=== PATIENT | female | born 1935 | race Caucasian/White ===

== ENCOUNTER → 2016-12-18 | Outpatient (CLI) | payer MEDICARE, BC ==
--- NOTE | 2016-12-19 09:28 | RAD ---
DATE: 12/18/2016 EXAM: MAMMO ESSENCE SCREENING BILATERAL HISTORY: Asymptomatic screening mammogram. History of benign right breast biopsy. COMPARISON: 12/09/2015, 11/28/2011, 05/15/2011 This study was interpreted with the benefit of Computerized Aided Detection (CAD). The breast parenchyma is primarily fatty replaced. Breast parenchyma level density A. FINDINGS: Right breast: The right MLO view is inadequate as the pectoralis muscle is not included to the level of the posterior nipple line. Additional imaging is recommended. No suspicious microcalcifications, masses or areas or architectural distortion identified on the cc view. Left breast: No suspicious mammographic calcifications, masses or areas of architectural distortion identified. IMPRESSION: 1. Incomplete right mammogram. Additional views to include repeat right MLO view. 2. Normal left mammogram. BI-RADS CATEGORY: 0 INCOMPLETE: NEEDS ADDITIONAL IMAGING EVALUATION AND/OR PRIOR MAMMOGRAMS FOR COMPARISON. RECOMMENDED FOLLOW-UP: ADD ADDITIONAL IMAGING PQRS compliance statement: Mammography is a sensitive method for finding small breast cancers, but it does not detect them all and is not a substitute for careful clinical examination. A negative mammogram does not negate a clinically suspicious finding and should not result in delay in biopsying a clinically suspicious abnormality. "Our facility is accredited by the [employer] Mammography Program."
== END | disposition home or self-care (01) ==
LOC: MAMMO 11:14
PROVIDERS: ATTEND Internal Medicine
DX: Z12.31 Encounter for screening mammogram for malignant neoplasm of breast (principal)
CPT/HCPCS: 77063; G0202; 77067

== ENCOUNTER → 2016-12-29 | Outpatient (CLI) | payer MEDICARE, BC | END | disposition home or self-care (01) | LOC: MAMMO 13:54 | PROVIDERS: ATTEND Internal Medicine | DX: Z53.21 Procedure and treatment not carried out due to patient leaving prior to being seen by health care provider (principal) ==

== ENCOUNTER 2018-01-21 11:30 | Inpatient (IN) | payer MEDICARE, BC ==
[~2018-01-21] VITALS: Ht 165.1 cm; Wt 78.0 kg
[2018-01-21 12:19] LABS: BASO # 0.1 x10^3/uL (0.0-0.2); BASO % 1 % (0-3); EOS # 0.3 x10^3/uL (0.0-0.7); EOS % 7 % (0-3); HEMATOCRIT 42.5 % (36.0-47.0); HEMOGLOBIN 14.3 g/dL (12.0-15.5); LYMPH # 0.8 x10^3/uL (1.0-4.8); LYMPH % 17 % (24-48); MEAN CORPUSCULAR HEMOGLOBIN 28 pg (25-35); MEAN CORPUSCULAR HGB CONC 34 g/dL (31-37); MEAN CORPUSCULAR VOLUME 84 fL (79-100); MONO # 0.3 x10^3/uL (0.0-1.1); MONO % 6 % (0-9); NEUT # 3.5 x10^3uL (1.8-7.7); NEUT % 70 % (31-73); PLATELET COUNT 149 x10^3/uL (140-400); RED BLOOD COUNT 5.05 x10^6/uL (3.50-5.40); RED CELL DISTRIBUTION WIDTH 14.5 % (11.5-14.5)
--- NOTE | 2018-01-21 12:36 | RAD ---
CT scan of the head without contrast 01/21/2018 Clinical History: Sudden onset of dizziness since earlier today. Code stroke. Technique: Unenhanced, contiguous, 5 mm axial sections were obtained through the head. One or more of the following individualized dose reduction techniques were utilized for this study: 1. Automated exposure control. 2. Adjustment of the mA and/or kV according to patient size. 3. Use of iterative reconstruction technique. Findings: No previous studies are available for comparison. There is generalized parenchymal atrophy. Areas of decreased attenuation are seen within the periventricular and subcortical white matter of both cerebral hemispheres consistent with areas of small vessel ischemic disease. No acute parenchymal abnormality is seen. No extra-axial fluid collection is noted. No skull fracture is seen. Impression: No acute intracranial abnormality is seen. This result was called to Dr. Scott at 1229 hours. Electronically signed by: Doni Ross MD (01/21/2018 12:32 PM) [id number]
[2018-01-21 12:38] LABS: ALBUMIN 3.9 g/dL (3.4-5.0); ALBUMIN/GLOBULIN RATIO 1.2 (1.0-1.7); CALCIUM 9.3 mg/dL (8.5-10.1); CREATININE 0.8 mg/dL (0.6-1.0); GFR 68.7; POTASSIUM 3.7 mmol/L (3.5-5.1); TOTAL BILIRUBIN 0.6 mg/dL (0.2-1.0); TOTAL PROTEIN 7.2 g/dL (6.4-8.2)
[2018-01-21] MEDS ORDERED: ASPIRIN 81 MG TAB.CHEW PO ONE (12:45)
[2018-01-21] MEDS ORDERED: ONDANSETRON PF 4 MG/2 ML VIAL. IV ONE (12:45)
[2018-01-21] MEDS ORDERED: MECLIZINE 12.5 MG TABLET. PO PRN (12:45)
--- NOTE | 2018-01-21 13:44 | PHYS DOC ---
Past History Past Medical History: Arthritis, High Cholesterol, Heart Disease Past Surgical History: Knee Replacement, Other Alcohol Use: None Drug Use: None Adult General Chief Complaint Chief Complaint: DIZZY/LIGHT HEADED HPI HPI 82-year-old female patient brought in by EMS because of dizziness. Patient states she woke up at her usual time this morning without any problem and around 10 AM had sudden onset of dizziness with pain in his rectal area and nausea without blurred vision, focal neuro deficit, fever and chills, chest pain , shortness of breath, history of head injury or the same dizziness. Patient states that this is getting worse with moving her head or standing up and was not able to ambulate because of severe dizziness. Patient denies history of URI symptoms and change of her hearing. Review of Systems Review of Systems Constitutional: Denies fever or chills [] Eyes: Denies change in visual acuity, redness, or eye pain [] HENT: Denies nasal congestion or sore throat [] Respiratory: Denies cough or shortness of breath [] Cardiovascular: No additional information not addressed in HPI [] GI: Denies abdominal pain, nausea, vomiting, bloody stools or diarrhea [] : Denies dysuria or hematuria [] Musculoskeletal: Denies back pain or joint pain [] Integument: Denies rash or skin lesions [] Neurologic: Reports dizziness and headache, denies focal weakness or sensory changes [] Endocrine: Denies polyuria or polydipsia [] All other systems were reviewed and found to be within normal limits, except as documented in this note. Current Medications Current Medications Current Medications Medications (Trade) Dose Ordered Sig/Lelo Start Time Stop Time Status Last Admin Dose Admin Aspirin (Children'S Aspirin) 324 mg 1X ONCE 01/21/18 12:45 01/21/18 12:46 DC 01/21/18 12:45 324 MG Meclizine HCl (Antivert) 25 mg PRN Q6HRS PRN 01/21/18 12:45 01/21/18 12:45 25 MG Ondansetron HCl (Zofran) 4 mg 1X ONCE 01/21/18 12:45 01/21/18 12:46 DC 01/21/18 12:45 4 MG Allergies Allergies Allergies Coded Allergies Type Severity Reaction Last Updated Verified BISI Inhibitors Allergy Intermediate 01/21/18 Yes acetaminophen Allergy Intermediate 01/21/18 Yes amoxicillin Allergy Intermediate 01/21/18 Yes hydrocodone Allergy Intermediate 01/21/18 Yes Physical Exam Physical Exam Constitutional: Well developed, well nourished, moderate distress, non-toxic appearance, anxious, keeps her eyes closed. [] HENT: Normocephalic, atraumatic, bilateral external ears normal, oropharynx moist, no oral exudates, nose normal. [] Eyes: PERRLA, EOMI, conjunctiva normal, no discharge. [] Neck: Normal range of motion, no tenderness, supple, no stridor. [] Cardiovascular:Heart rate regular rhythm, no murmur [] Lungs & Thorax: Bilateral breath sounds clear to auscultation [] Abdomen: Bowel sounds normal, soft, no tenderness, no masses, no pulsatile masses. [] Skin: Warm, dry, no erythema, no rash. [] Back: No tenderness, no CVA tenderness. [] Extremities: No tenderness, no cyanosis, no clubbing, ROM intact, no edema. [] Neurologic: Alert and oriented X 3, normal motor function, normal sensory function, no focal deficits noted, NIHSS of 0. [] Psychologic: Affect anxious, judgement normal, mood normal. [] Current Patient Data Vital Signs Vital Signs Date Time Temp Pulse Resp B/P (MAP) Pulse Ox O2 Delivery O2 Flow Rate FiO2 01/21/18 11:49 80 16 96 Room Air Lab Results Laboratory Tests Test 01/21/18 11:58 01/21/18 12:20 White Blood Count 5.0 x10^3/uL (4.0-11.0) Red Blood Count 5.05 x10^6/uL (3.50-5.40) Hemoglobin 14.3 g/dL (12.0-15.5) Hematocrit 42.5 % (36.0-47.0) Mean Corpuscular Volume 84 fL (79-100) Mean Corpuscular Hemoglobin 28 pg (25-35) Mean Corpuscular Hemoglobin Concent 34 g/dL (31-37) Red Cell Distribution Width 14.5 % (11.5-14.5) Platelet Count 149 x10^3/uL (140-400) Neutrophils (%) (Auto) 70 % (31-73) Lymphocytes (%) (Auto) 17 % (24-48) L Monocytes (%) (Auto) 6 % (0-9) Eosinophils (%) (Auto) 7 % (0-3) H Basophils (%) (Auto) 1 % (0-3) Neutrophils # (Auto) 3.5 x10^3uL (1.8-7.7) Lymphocytes # (Auto) 0.8 x10^3/uL (1.0-4.8) L Monocytes # (Auto) 0.3 x10^3/uL (0.0-1.1) Eosinophils # (Auto) 0.3 x10^3/uL (0.0-0.7) Basophils # (Auto) 0.1 x10^3/uL (0.0-0.2) Prothrombin Time 10.4 SEC (9.4-11.4) Prothrombin Time INR 1.0 (0.9-1.1) PTT 24 SEC (23-33) Sodium Level 142 mmol/L (136-145) Potassium Level 3.7 mmol/L (3.5-5.1) Chloride Level 105 mmol/L (98-107) Carbon Dioxide Level 26 mmol/L (21-32) Anion Gap 11 (6-14) Blood Urea Nitrogen 18 mg/dL (7-20) Creatinine 0.8 mg/dL (0.6-1.0) Estimated GFR (Cockcroft-Gault) 68.7 BUN/Creatinine Ratio 23 (6-20) H Glucose Level 160 mg/dL (70-99) H Calcium Level 9.3 mg/dL (8.5-10.1) Total Bilirubin 0.6 mg/dL (0.2-1.0) Aspartate Amino Transferase (AST) 22 U/L (15-37) Alanine Aminotransferase (ALT) 32 U/L (14-59) Alkaline Phosphatase 159 U/L (46-116) H Creatine Kinase 52 U/L (26-192) Creatine Kinase MB (Mass) 0.9 ng/mL (0.0-3.6) Creatine Kinase MB Relative Index 1.7 % (0-4) Troponin I Quantitative < 0.017 ng/mL (0-0.055) Total Protein 7.2 g/dL (6.4-8.2) Albumin 3.9 g/dL (3.4-5.0) Albumin/Globulin Ratio 1.2 (1.0-1.7) Glucose (Fingerstick) 151 mg/dL (70-99) H EKG EKG EKG interpreted by me. EKG at 1144 showed sinus rhythm at rate of 76 with complex cyst with a intraventricular conduction, abnormal inverted T-wave in anteroseptal leads, no acute ST and T wave abnormality Radiology/Procedures Radiology/Procedures [[address] [address] IMAGING REPORT Signed PATIENT: MARIA VICTORIA KENNEDY ACCOUNT: [id number] : 1935 LOCATION: ER AGE: 82 SEX: F EXAM STATUS: REG ER ORD. PHYSICIAN: ILANA VO MD REASON: sudden onset of dizziness PROCEDURE: CT CODE STROKE HEAD WO CT scan of the head without contrast 01/21/2018 Clinical History: Sudden onset of dizziness since earlier today. Code stroke. Technique: Unenhanced, contiguous, 5 mm axial sections were obtained through the head. One or more of the following individualized dose reduction techniques were utilized for this study: 1. Automated exposure control. 2. Adjustment of the mA and/or kV according to patient size. 3. Use of iterative reconstruction technique. Findings: No previous studies are available for comparison. There is generalized parenchymal atrophy. Areas of decreased attenuation are seen within the periventricular and subcortical white matter of both cerebral hemispheres consistent with areas of small vessel ischemic disease. No acute parenchymal abnormality is seen. No extra-axial fluid collection is noted. No skull fracture is seen. Impression: No acute intracranial abnormality is seen. This result was called to Dr. Vo at 1229 hours. Electronically signed by: Doni Ross MD (01/21/2018 12:32 PM) [facility] ] Course & Med Decision Making Course & Med Decision Making Pertinent Labs and Imaging studies reviewed. (See chart for details) Evaluation of patient in ER showed 82-year-old female patient with complaining of dizziness for 12 hours prior to arrival to ER with no neurological deficit patient had unremarkable CT head and labs and treated with Zofran and meclizine and felt better. Orthostatic vital signs was unremarkable. Dr Horton was informed at 1320 and agreed with plan of admission. Dragon Disclaimer Dragon Disclaimer This electronic medical record was generated, in whole or in part, using a voice recognition dictation system. Departure Departure: Impression: Primary Impression: Dizziness Additional Impression: Benign positional vertigo Disposition: 09 ADMITTED INPATIENT (at 1321) Admitting Physician: Other (Srinivasa Horton ) Condition: IMPROVED Referrals: LOLLY RANDALL MD (PCP) Problem Qualifiers ILANA VO MD Jan 21, 2018 13:44
[2018-01-21 15:15] VITALS: BP 175/93
[2018-01-21] MEDS ORDERED: CHLO10CA5 PO (16:03)
[2018-01-21] MEDS ORDERED: MULT1TAB52 PO (16:03)
[2018-01-21] MEDS ORDERED: EZET10TA18 PO (16:03)
[2018-01-21] MEDS ORDERED: MELO7.5T29 PO (16:03)
[2018-01-21] MEDS ORDERED: DESI25TA PO (16:03)
[2018-01-21] MEDS ORDERED: METO50TA29 PO (16:03)
[2018-01-21] MEDS ORDERED: LEVO100T PO (16:03)
[2018-01-21] MEDS ORDERED: ATOR40TA59 PO (16:03)
[2018-01-21] MEDS ORDERED: CALC-30 PO (16:03)
[2018-01-21] MEDS ORDERED: ASPI-630 PO (16:03)
[2018-01-21] MEDS ORDERED: ISOS30TA19 PO (16:03)
[2018-01-21 19:57] VITALS: BP 156/82
[2018-01-21] MEDS ORDERED: ATORVASTATIN CALCIUM 20 MG TABLET PO SCH (21:00)
[2018-01-21] MEDS: LORazepam 0.5 MG TABLET PO SCH (22:09)
[2018-01-21 23:05] VITALS: BP 162/79
--- NOTE | 2018-01-21 23:23 | CONS ---
DATE OF CONSULTATION: 01/21/2018 NEUROLOGY CONSULT REFERRING PHYSICIAN: Dr. Srinivasa Horton. REASON FOR CONSULTATION: Severe dizziness. HISTORY OF PRESENT ILLNESS: The patient is an 82-year-old right-handed female who was admitted through Emergency Room after she presented with chief complaints of severe dizziness described as spinning, more prominent when she moves her head to any directions or changing her body positions quickly. The patient woke up this morning and she went to bathroom and she did her usual work in the morning, but around 10 a.m., she had a sudden onset of severe dizziness with nausea and pain in the rectum region without vomiting, abdominal pain, hematemesis, or hematochezia. The patient denies chest pain, shortness of breath or palpitation, dysarthria, dysphagia, weakness or paresthesia. She denies any visual disturbances. She also complains of mild lightheadedness. She also noticed difficulty walking and impaired balance secondary to dizziness. She denies any recent fall or head injuries. Initial nonenhanced head CT scan revealed no evidence of acute intracranial process, but showed periventricular and subcortical white matter small vessel ischemic disease, otherwise unremarkable. The patient was placed on meclizine for vertigo. PAST MEDICAL HISTORY: Significant for hyperlipidemia, hypertension, bilateral total knee replacements. SOCIAL HISTORY: The patient lives independently. She denies smoking, alcohol drinking, or illicit drug use. CURRENT HOME MEDICATIONS: Multivitamins and calcium, metoprolol 50 mg daily, Meloxicam 7.5 mg daily, Imdur 30 mg daily, Zetia 10 mg daily, calcium and vitamin D 1 tablet daily, Norpramin 50 mg daily, aspirin 81 mg daily, levothyroxine 100 mg daily, lorazepam 0.5 mg daily, Lipitor 40 mg daily and added meclizine 25 mg every 6 hours p.r.n. for severe dizziness. ALLERGIES: BISI INHIBITORS, ACETAMINOPHEN, AMOXICILLIN, AND HYDROCODONE. FAMILY HISTORY: Noncontributory. REVIEW OF SYSTEMS: Ten-point review of system was performed as mentioned above in history of present illness. PHYSICAL EXAMINATION: GENERAL: Well-developed, well-nourished female, not in acute distress. VITAL SIGNS: Blood pressure 175/93, respiratory rate 16, pulse is 79 and regular, temperature 96.9, oxygen saturation 95% on room air. HEENT: Normocephalic, atraumatic, otherwise unremarkable. NECK: Supple. Negative for carotid bruit, lymphadenopathy or thyromegaly. LUNGS: Clear to A and P. CARDIOVASCULAR: Regular rate and rhythm. Normal S1, S2. There is no S3, S4, or murmur. ABDOMEN: Soft. Bowel sounds positive. EXTREMITIES: Negative for cyanosis, clubbing or pitting edema. NEUROLOGICAL EXAM: Mental Status: The patient is alert and oriented x3. The speech is fluent. There is no language dysfunction. Memory, judgment, and abstract thinking are normal. The patient denies hallucination or delusion. Cranial Nerves: Visual badillo are full. The pupils are reactive to light and accommodation. The extraocular movements are intact. There is no nystagmus. There is no facial motor or sensory deficit. Hearing is slightly diminished on the right side compared to that on the left, otherwise unremarkable. The palate is elevated symmetrically. Sternocleidomastoid muscles are powerful bilaterally. The patient shrugs her shoulders symmetrically. Protrudes her tongue in the midline without fasciculation or atrophy. Motor: No focal muscle bulk was seen. The tone is normal. The strength is 4/5 throughout. Sensory examination revealed normal pinprick, light touch, vibratory and position senses. Deep tendon reflexes were symmetric and hypoactive with absent Achilles responses. Gait: The stance is unsteady. The patient has tendency to fall. LABORATORY DATA: CBC revealed white blood cells of 5000, hemoglobin 14.3, hematocrit 42.5, platelet count 149,000. Chemistry revealed sodium of 142, potassium 3.7, chloride 105, CO2 26, BUN 80, creatinine 0.8, glucose 160. Liver enzymes are normal, alkaline phosphatase is elevated. Troponin level is less than 0.017. Coagulation; PT is 10.4, INR 1, and PTT is 24. IMPRESSION: 1. Acute onset of vertigo described as spinning aggravated by changing body positions quickly from sitting to standing or by turning head quickly to all directions. These findings may represent benign paroxysmal positional vertigo. 2. Multiple medical problems includes hypertension, hyperlipidemia, hypothyroidism, vitamin D deficiency, and possible history of coronary artery disease. RECOMMENDATIONS: 1. Continue with current management initiated by Dr. Horton. 2. Agree with meclizine to reduce the anxiety associated with vertigo. However, the patient needs vestibular exercise. 3. Physical therapy as tolerated. M Gareth MACIAS MD DR: Earnestine JOB#: [id number] / [id number]
[2018-01-22] MEDS ORDERED: ACETAMINOPHEN 500 MG TABLET PO PRN (03:15)
[2018-01-22 05:21] VITALS: BP 157/84
--- NOTE | 2018-01-22 06:43 | EKG ---
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
[2018-01-22] MEDS ORDERED: LEVOTHYROXINE 100 MCG TABLET PO SCH (07:00)
[2018-01-22] MEDS ORDERED: ASPIRIN 81 MG TAB.CHEW PO SCH (08:00)
[2018-01-22 08:50] VITALS: BP 169/79
[2018-01-22 08:51] VITALS: BP 172/84
[2018-01-22 08:53] VITALS: BP 168/98
[2018-01-22] MEDS ORDERED: MELOXICAM 7.5 MG TABLET PO SCH (09:00)
[2018-01-22] MEDS ORDERED: ISOSORBIDE MONONITRATE ER 30 MG TAB.ER.24H PO SCH (09:00)
[2018-01-22] MEDS ORDERED: METOPROLOL SUCC 24HR ER 50 MG TAB.ER.24H. PO SCH (09:00)
[2018-01-22] MEDS ORDERED: CALCIUM CARB/VIT D3 500/200 TABLET PO SCH (09:00)
[2018-01-22] MEDS ORDERED: EZETIMIBE 10 MG TABLET PO SCH (09:00)
[2018-01-22] MEDS ORDERED: DESIPRAMINE HCL 25 MG TABLET PO SCH (09:00)
[2018-01-22] MEDS ORDERED: MULTIVITAMIN with MINERAL TABLET. PO SCH (09:00)
[2018-01-22] MEDS: LORazepam 0.5 MG TABLET PO SCH (09:06)
--- NOTE | 2018-01-22 11:55 | PN ---
DATE: SUBJECTIVE: The patient continues to complain of impaired balance and difficulty to stand. She has a tendency to fall forwards. She denies vertigo, nausea, vomiting, visual disturbances or headaches. She denies chest pain, shortness of breath or palpitation, dysarthria or dysphagia. OBJECTIVE: GENERAL: Well-developed, well-nourished female, not in acute distress. VITAL SIGNS: She weighs 172 pounds. Blood pressure 175/84, respiratory rate 20, pulse is 103, temperature 98.7, oxygen saturation 98% on room air. HEENT: Normocephalic, atraumatic, otherwise unremarkable. NECK: Supple. Negative for carotid bruit, lymphadenopathy, JVD or thyromegaly. LUNGS: Are clear to A and P. CARDIOVASCULAR: Regular rate and rhythm, normal S1, S2. There is no S3, S4, or murmur. ABDOMEN: Soft. Bowel sounds positive. EXTREMITIES: Are negative for cyanosis, clubbing or pitting edema. NEUROLOGIC: Normal mental status and intact cranial nerves. There is no evidence of nystagmus, otherwise unremarkable. Motor examination revealed no focal muscle bulk was seen. The tone is normal. The strength is 5/5 throughout. Sensory examination revealed normal pinprick, light touch over vibratory and position senses. Deep tendon reflexes were symmetric and hypoactive with absent Achilles responses. Gait: The stance is unsteady. The patient is very ataxic. IMPRESSION: 1. Vertigo on admission; however, she denies any other symptoms of vestibulitis, has nausea, vomiting or illness that there is no nystagmus. 2. Impaired balance. Etiology is uncertain, rule out central nervous system pathology as the cerebral pathology. 3. Multiple medical problems includes hypertension, hyperlipidemia, hypothyroidism, vitamin D deficiency, and possible coronary artery disease, status post bilateral total knee replacement. RECOMMENDATIONS: 1. Continue with current management initiated by Dr. Horton. 2. Brain MRI. 3. Continue with physical therapy as tolerated. M Gareth MACIAS MD DR: LUZ/sujey JOB#: [id number] / [id number]
[2018-01-22 12:50] VITALS: BP 161/74
--- NOTE | 2018-01-22 17:22 | PDOC1 ---
History of Present Illness Reason for Visit: dizziness History of Present Illness 82-year-old female brought to the ED by EMS after developing severe dizziness and vertigo after moving her head. She had associated nausea with no vomiting, denied chest pain trouble breathing headache or focal neurologic deficits. She was unable to ambulate and denied any recent falls or head injuries no recent illnesses. A CT of the head revealed no acute intracranial process and labs were overall unremarkable. The patient was admitted for intractable vertigo and gait abnormality for observation and neurologic consultation. Neurology did evaluate the patient and indicated likely benign positional vertigo as an etiology. It was recommended to continue current treatment including meclizine and MRI evaluation. When the discussion came to the patient about transferring to [place] for an MRI she requested transfer to [place] where her doctor is located. At 12:04 PM I was contacted by phone by Dr. Bety Rooney [facility]'s transfer team physician who agreed to find placement for the patient at [place]. I was in clinic that morning and the patient was transferred prior to my being able to evaluate her or see her. Past medical history: Hyperlipidemia, hypertension, hypothyroidism, vitamin D deficiency, osteoarthritis Past surgical history: Bilateral total knee replacements Social history: The patient lives alone denies smoking alcohol abuse or illicit drugs Chief Complaint: DIZZY/LIGHT HEADED Allergies: Coded Allergies: BISI Inhibitors (Verified Allergy, Intermediate, 01/21/18) amoxicillin (Verified Allergy, Intermediate, 01/21/18) hydrocodone (Verified Allergy, Intermediate, 01/21/18) Review of Systems Review Of Systems As I did not see the patient review of systems is per the chart, See HPI for pertinent positives and negative responses, other ivy all other systems are negative, non pertinent or non contributory Medications Current Medications Ondansetron HCl (Zofran) 4 mg 1X ONCE IV Last administered on 01/21/18at 12:45 ; Start 01/21/18 at 12:45; Stop 01/21/18 at 12:46; Status DC Meclizine HCl (Antivert) 25 mg PRN Q6HRS PRN PO DIZZINESS Last administered on 01/21/18at 12:45; Start 01/21/18 at 12:45; Stop 01/22/18 at 16:13; Status DC Aspirin (Children'S Aspirin) 324 mg 1X ONCE PO Last administered on 01/21/18at 12:45; Start 01/21/18 at 12:45; Stop 01/21/18 at 12:46; Status DC Desipramine HCl (Norpramin) 50 mg DAILY PO Last administered on 01/22/18at 09:07 ; Start 01/22/18 at 09:00; Stop 01/22/18 at 16:13; Status DC Levothyroxine Sodium (Synthroid) 100 mcg DAILY07 PO Last administered on at 07:28; Start 01/22/18 at 07:00; Stop 01/22/18 at 16:13; Status DC Aspirin (Children'S Aspirin) 81 mg DAILYWBKFT PO Last administered on at 09:05; Start 01/22/18 at 08:00; Stop 01/22/18 at 16:13; Status DC Atorvastatin Calcium (Lipitor) 40 mg QHS PO Last administered on 01/21/18at 22: 09; Start 01/21/18 at 21:00; Stop 01/22/18 at 16:13; Status DC Calcium/Vitamin D (Oscal D 500mg/ 200uts) 1 tab DAILY PO Last administered on at 09:04; Start 01/22/18 at 09:00; Stop 01/22/18 at 16:13; Status DC Lorazepam (Ativan) 0.5 mg BID PO Last administered on 01/22/18at 09:06; Start at 21:00; Stop 01/22/18 at 16:13; Status DC EZETIMIBE (Zetia) 10 mg DAILY PO Last administered on 01/22/18at 09:05; Start at 09:00; Stop 01/22/18 at 16:13; Status DC Isosorbide Mononitrate (Imdur) 30 mg DAILY PO Last administered on 01/22/18at 09 :05; Start 01/22/18 at 09:00; Stop 01/22/18 at 16:13; Status DC Meloxicam (Mobic) 7.5 mg DAILY PO Last administered on 01/22/18at 09:06; Start 01/22/18 at 09:00; Stop 01/22/18 at 16:13; Status DC Metoprolol Succinate (Toprol Xl) 50 mg DAILY PO Last administered on 01/22/18at 09:05; Start 01/22/18 at 09:00; Stop 01/22/18 at 16:13; Status DC Multivitamins/ Calcium (Thera-M Plus) 1 tab DAILY PO Last administered on at 09:06; Start 01/22/18 at 09:00; Stop 01/22/18 at 16:13; Status DC Acetaminophen (Tylenol) 500 mg PRN Q6HRS PRN PO PAIN / TEMP Last administered on 01/22/18at 09:05; Start 01/22/18 at 03:15; Stop 01/22/18 at 16:13; Status DC Active Scripts Active Reported Multivitamins (Multivitamin) 1 Each Tablet 1 Tab PO DAILY Isosorbide Dinitrate 30 Mg Tablet 30 Mg PO DAILY Synthroid (Levothyroxine Sodium) 100 Mcg Tablet 1 Tab PO DAILY Norpramin (Desipramine Hcl) 25 Mg Tablet 50 Mg PO DAILY Metoprolol Succinate ( Xl ) (Metoprolol Succinate) 50 Mg Tab.er.24h 1 Tab PO DAILY Meloxicam 7.5 Mg Tablet 1 Tab PO DAILY Chlordiazepoxide Hcl 10 Mg Capsule 10 Mg PO BID Zetia (Ezetimibe) 10 Mg Tablet 1 Tab PO DAILY Calcium 500 + Vit D 400 Tablet (Calcium Carbonate/Vitamin D3) 1 Each Tablet 1 Each PO DAILY Atorvastatin Calcium 40 Mg Tablet 1 Tab PO QHS Aspirin 81 Mg Tab.chew 81 Mg PO DAILY Exam Vital Signs Vital Signs Date Time Temp Pulse Resp B/P (MAP) Pulse Ox O2 Delivery O2 Flow Rate FiO2 01/22/18 12:50 87 18 161/74 (103) 98 Room Air 01/22/18 12:31 97.8 Assessment/Plan Assessment/Plan Sudden onset of vertigo likely benign positional vertigo Gait and balance difficulty Multiple medical problems including hypertension hyperlipidemia hypothyroidism vitamin D deficiency Patient was transferred to another facility prior to my being able to evaluate her in person. COURSE Allergies Coded Allergies Type Severity Reaction Last Updated Verified BISI Inhibitors Allergy Intermediate 01/21/18 Yes amoxicillin Allergy Intermediate 01/21/18 Yes hydrocodone Allergy Intermediate 01/21/18 Yes Current Medications Medications (Trade) Dose Ordered Sig/Lelo Route PRN Reason Start Time Stop Time Status Last Admin Dose Admin Desipramine HCl (Norpramin) 50 mg DAILY PO 01/22/18 09:00 8/14/18 16:13 DC 01/22/18 09:07 Levothyroxine Sodium (Synthroid) 100 mcg DAILY07 PO 01/22/18 07:00 01/22/18 16:13 DC 01/22/18 07:28 Aspirin (Children'S Aspirin) 81 mg DAILYWBKFT PO 01/22/18 08:00 01/22/18 16:13 DC 01/22/18 09:05 Atorvastatin Calcium (Lipitor) 40 mg QHS PO 01/21/18 21:00 01/22/18 16:13 DC 01/21/18 22:09 Calcium/Vitamin D (Oscal D 500mg/ 200uts) 1 tab DAILY PO 01/22/18 09:00 01/22/18 16:13 DC 01/22/18 09:04 Lorazepam (Ativan) 0.5 mg BID PO 01/21/18 21:00 01/22/18 16:13 DC 01/22/18 09:06 EZETIMIBE (Zetia) 10 mg DAILY PO 01/22/18 09:00 01/22/18 16:13 DC 01/22/18 09:05 Isosorbide Mononitrate (Imdur) 30 mg DAILY PO 01/22/18 09:00 01/22/18 16:13 DC 01/22/18 09:05 Meloxicam (Mobic) 7.5 mg DAILY PO 01/22/18 09:00 01/22/18 16:13 DC 01/22/18 09:06 Metoprolol Succinate (Toprol Xl) 50 mg DAILY PO 01/22/18 09:00 01/22/18 16:13 DC 01/22/18 09:05 Multivitamins/ Calcium (Thera-M Plus) 1 tab DAILY PO 01/22/18 09:00 01/22/18 16:13 DC 01/22/18 09:06 Acetaminophen (Tylenol) 500 mg PRN Q6HRS PRN PO PAIN / TEMP 01/22/18 03:15 01/22/18 16:13 DC 01/22/18 09:05 I & O 01/22/18 00:00 Intake Total 700 ml Output Total 500 ml Balance 200 ml Orders Procedure Category Date Status Time Pt Eval And Treat PT 01/21/18 Complete 19:10 Acetaminophen PHA 01/22/18 Complete (Tylenol) 03:15 Discharge From ADT 01/22/18 Transmitted Hospital Vital Signs Date Time Temp Pulse Resp B/P (MAP) Pulse Ox O2 Delivery O2 Flow Rate FiO2 01/22/18 12:50 87 18 161/74 (103) 98 Room Air 01/22/18 12:31 97.8 NEGRA GONZALES DO Jan 22, 2018 17:22
== END 2018-01-22 13:30 | disposition short-term general hospital (02) | DRG 149 ==
LOC: ER 11:30 → 1 SOUTH 13:26
PROVIDERS: ADMIT Neuromusculoskeletal Medicine & OMM; ATTEND Neuromusculoskeletal Medicine & OMM
DX: H81.10 Benign paroxysmal vertigo, unspecified ear (principal); E03.9 Hypothyroidism, unspecified; E55.9 Vitamin D deficiency, unspecified; E78.5 Hyperlipidemia, unspecified; I10 Essential (primary) hypertension; I25.10 Atherosclerotic heart disease of native coronary artery without angina pectoris; R29.6 Repeated falls; M19.90 Unspecified osteoarthritis, unspecified site; Z96.653 Presence of artificial knee joint, bilateral; Z79.82 Long term (current) use of aspirin; Z79.899 Other long term (current) drug therapy; Z60.2 Problems related to living alone; Z88.8 Allergy status to other drugs, medicaments and biological substances
CPT/HCPCS: 36415; 70450; 80053; 82553; 82947; 84484; 85025; 85610; 85730; 93005; J2405; J8597; 99285-25

== ENCOUNTER → 2021-09-16 | Outpatient (CLI) | payer MEDICARE, BC ==
[~2021-09-16] MED LIST: ASPI-630 PO; ATOR40TA59 PO; CALC-30 PO; CHLO10CA5 PO; DESI25TA PO; EZET10TA20 PO; ISOS30TA19 PO; LEVO100T PO; MELO7.5T29 PO; METO50TA29 PO; MULT-445 PO
--- NOTE | 2021-09-16 13:55 | RAD ---
EXAMINATION: CT HEAD/BRAIN WO CLINICAL HISTORY: New persistent headaches and dizziness. TECHNIQUE: Serial axial images without IV contrast were obtained from the vertex to the foramen magnu m. CT Dose Reduction Employed: One or more of the following individualized dose reduction techniques wer e utilized for this examination: 1. Automated exposure control 2. Adjustment of the mA and/or kV ac cording to patient size 3. Use of iterative reconstruction technique. COMPARISON: 01/21/2018 FINDINGS: Acute Change: No evidence of an acute infarct or other acute parenchymal process. Hemorrhage: No evidence of acute intracranial hemorrhage. Mass Lesion/Mass Effect: No evidence of intracranial mass or extraaxial fluid collection. No signific ant mass effect. 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 Pa tchy hypoattenuation in the supratentorial white matter, nonspecific but likely represents moderate m icrovascular ischemia. Atherosclerotic calcification of the intracranial portion of the bilateral int ernal carotid arteries. Parenchyma: Mild to moderate generalized volume loss. Ventricles: Ventricular enlargement concordant with degree of parenchymal volume loss. Paranasal Sinuses and Skull Base: Visualized paranasal sinuses clear. Bilateral intraocular lens impl ants. Visualized skull base and soft tissues unremarkable. IMPRESSION: No evidence of acute intracranial abnormality. Remote left cerebellar infarct, new since the prior study. Electronically signed by: Lex Cabrera DO (09/16/2021 1:52 PM) [id number]
== END ==
LOC: CT 13:26
PROVIDERS: ATTEND Internal Medicine
DX: I63.9 Cerebral infarction, unspecified (principal); G93.89 Other specified disorders of brain; I10 Essential (primary) hypertension; G44.52 New daily persistent headache (NDPH); I51.7 Cardiomegaly
CPT/HCPCS: 70450